=== PATIENT | female | born 1985 | race Caucasian/White ===

== ENCOUNTER 2017-07-12 16:12 | Inpatient (IN) | payer OTHER ==
[~2017-07-12] VITALS: Ht 162.6 cm; Wt 109.9 kg
[2017-07-12 18:46] LABS: BASOPHIL % 0.1 % (0-2); PLATELET COUNT 343 x10^3mcL (130-400); RED CELL DISTRIBUTION WIDTH 12.3 % (11.5-14.5)
[2017-07-12 18:53] LABS: CALCIUM 8.9 mg/dL (8.5-10.1); CARBON DIOXIDE 29.3 mmol/L (21-32); CHLORIDE SERUM 101 mmol/L (98-107); CREATININE SERUM 0.5 mg/dL (0.6-1.0); GFR1 > 60 mL/min; GLUCOSE SERUM 283 mg/dL (74-106); SODIUM SERUM 140 mmol/L (136-145)
[2017-07-12 18:56] LABS: UA SPECIFIC GRAVITY 1.015 (1.005-1.035); microscopic required? YES; urine erythrocyte TRACE (NEGATIVE)
[2017-07-12 19:24] LABS: ALBUMIN 3.7 g/dL (3.4-5.0); ALKALINE PHOSPHATASE 86 U/L (46-116); ALT/SGPT 21 U/L (14-59); AST/SGOT 12 U/L (15-37); BILIRUBIN TOTAL 1.7 mg/dL (0.20-1.00); TOTAL PROTEIN, SERUM 8.1 g/dL (6.4-8.2)
[2017-07-12 22:12] LABS: PHOSPHOROUS 3.7 mg/dL (2.5-4.9)
[2017-07-12 22:17] LABS: CHOLESTEROL/HDL RATIO 7.6
[2017-07-12 22:20] LABS: T3 TOTAL 0.94 ng/mL
[2017-07-12 22:34] LABS: FREE T4 1.22 ng/dL (0.76-1.46); FREE THYROXINE INDEX 3.1 ug/dL (1.4-4.5)
[2017-07-12 22:53] VITALS: BP 126/87
[2017-07-13 05:20] VITALS: BP 108/69
[2017-07-13 06:27] LABS: BASOPHIL % 0.2 % (0-2); PLATELET COUNT 269 x10^3mcL (130-400); RED CELL DISTRIBUTION WIDTH 12.3 % (11.5-14.5)
[2017-07-13 06:45] LABS: CALCIUM 7.8 mg/dL (8.5-10.1); CARBON DIOXIDE 25.2 mmol/L (21-32); CHLORIDE SERUM 104 mmol/L (98-107); CREATININE SERUM 0.5 mg/dL (0.6-1.0); GFR1 > 60 mL/min; GLUCOSE SERUM 252 mg/dL (74-106); MAGNESIUM 1.8 mg/dL (1.8-2.4); PHOSPHOROUS 3.4 mg/dL (2.5-4.9); SODIUM SERUM 139 mmol/L (136-145)
[2017-07-13 08:55] VITALS: BP 125/83
[2017-07-13 10:01] LABS: AMPHETAMINE QUAL UR NONE DETECTED (NEG <=1000)
[2017-07-13 13:12] VITALS: BP 112/73
[2017-07-13 16:51] VITALS: BP 114/72
[2017-07-13 20:16] VITALS: BP 138/92
[2017-07-14 05:30] VITALS: BP 134/84
[2017-07-14 07:05] LABS: CARBON DIOXIDE 25.3 mmol/L (21-32); CHLORIDE SERUM 103 mmol/L (98-107); CREATININE SERUM 0.5 mg/dL (0.6-1.0); GFR1 > 60 mL/min; GLUCOSE SERUM 267 mg/dL (74-106); POTASSIUM SERUM 3.6 mmol/L (3.5-5.1); SODIUM SERUM 138 mmol/L (136-145)
[2017-07-14 07:44] LABS: BASOPHIL % 0.2 % (0-2); PLATELET COUNT 291 x10^3mcL (130-400)
[2017-07-14 08:35] VITALS: BP 112/72
[2017-07-14 12:26] VITALS: Ht 162.6 cm; Wt 109.9 kg
[2017-07-14] MEDS ORDERED: CLEOCIN HCL300 MG PO (13:30)
[2017-07-14] MEDS ORDERED: BD LACTINEX1.4 MG PO (13:31)
[2017-07-14] MEDS ORDERED: MAC100 PO (13:31)
[2017-07-14] MEDS ORDERED: LANTUS SOLOS100 U/M1 SQ (13:31)
[2017-07-14] MEDS ORDERED: RELION HUMUL100 U/M2 IV (13:33)
[2017-07-14] MEDS ORDERED: BACO TOP (13:36)
[2017-07-14] MEDS ORDERED: HIB480 TOP (13:36)
[2017-07-14] MEDS ORDERED: METFORMIN HCL500 MG PO (13:40)
[2017-07-14 13:57] VITALS: BP 112/72
== END 2017-07-14 17:12 | disposition home or self-care (01) | DRG 82 ==
LOC: ED 16:12 → DU 21:50 → MU 07-13 10:48
PROVIDERS: Emergency Medicine; Family Medicine
DX: H05.223 Edema of bilateral orbit (principal); N17.0 Acute kidney failure with tubular necrosis; E11.65 Type 2 diabetes mellitus with hyperglycemia; N39.0 Urinary tract infection, site not specified; D72.829 Elevated white blood cell count, unspecified; E78.5 Hyperlipidemia, unspecified; Z91.14 Patient's other noncompliance with medication regimen
CPT/HCPCS: 82962; 83880; 84439; J1815; J1885; J1956; J3490; J7030; Q0092; Q9967